=== PATIENT | female | born 1990 | race Caucasian/White ===

== ENCOUNTER 2016-06-30 15:27 | Emergency (ER) | payer SELFPAY ==
[~2016-06-30] VITALS: Ht 170.2 cm; Wt 65.0 kg
[~2016-06-30 15:27] MED LIST: ALBU0.086 INH; ALBU17I INH; FLUT1INH INH; PERC5TAB12 PO; [UNRECOGNIZED DRUG - CODE] RIGHT EYE
[2016-06-30 15:56] VITALS: BP 121/83; PULSE 91; RESP 16; TEMP 98.8; O2SAT 100
[2016-06-30] MEDS ORDERED: SODIUM CHLOR 0.9% 1000 ML INJ 1,000 ML IV SCH (16:28)
[2016-06-30] MEDS ORDERED: ONDANSETRON HCL 4 MG/2 ML VIAL IVP ONE (16:30)
[2016-06-30] MEDS ORDERED: SODIUM CHLORIDE 0.9% FLUSH 5 ML FLUSH IVF PRN (16:30)
[2016-06-30] MEDS ORDERED: MORPHINE SULFATE 4 MG/ML INJ IV ONE (16:30)
[2016-06-30] MEDS ORDERED: ALBU6.7H INH (16:31)
[2016-06-30] MEDS ORDERED: ALBU.5I NEB (16:31)
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
[2016-06-30 17:07] LABS: AUTOMATED NEUTROPHIL # 5.6 TH/MM3 (1.8-7.7); BASOPHIL % 0.3 % (0.0-2.0); EOSINOPHIL # 0.1 TH/MM3 (0-0.4); EOSINOPHIL % 0.9 % (0.0-4.0); HEMATOCRIT 37.1 % (35.0-46.0); HEMO FLAGS DIFF FINAL; LYMPH % 29.2 % (9.0-44.0); LYMPHOCYTE # 2.7 TH/MM3 (1.0-4.8); MEAN CELL VOLUME 91.7 FL (80.0-100.0); MEAN CORPUSCULAR HEMOGLOBIN 30.8 PG (27.0-34.0); MEAN CORPUSCULAR HGB CONC 33.5 % (32.0-36.0); MONO % 9.2 % (0.0-8.0); NEUT % 60.4 % (16.0-70.0); PLATELET COUNT 304 TH/MM3 (150-450); RED BLOOD COUNT 4.05 MIL/MM3 (4.00-5.30); RED CELL DISTRIBUTION WIDTH 12.9 % (11.6-17.2); WHITE BLOOD COUNT 9.3 TH/MM3 (4.0-11.0)
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
[2016-06-30 17:20] LABS: POTASSIUM 3.9 MEQ/L (3.5-5.1)
[2016-06-30 17:23] LABS: BICARBONATE 21.9 MEQ/L (21.0-32.0)
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
[2016-06-30] MEDS ORDERED: PROCHLORPERAZINE INJ 10 MG/2 ML VIAL IVS ONE (17:45)
[2016-06-30] MEDS ORDERED: diphenhydrAMINE HCL 50 MG/ML VIAL IV PUSH ONE (17:45)
[2016-06-30] MEDS ORDERED: PROM25TA5 PO (18:05)
[2016-06-30] MEDS ORDERED: ULTR50TA5 PO (18:05)
[2016-06-30 18:11] VITALS: BP 114/64; PULSE 80; RESP 17; O2SAT 100
[2016-06-30 19:14] VITALS: BP 115/64; TEMP 98.8
== END 2016-06-30 19:33 | disposition home or self-care (01) ==
LOC: PHED 15:27
DX: G44.319 Acute post-traumatic headache, not intractable (principal); S06.0X1A Concussion with loss of consciousness of 30 minutes or less, initial encounter; S60.221A Contusion of right hand, initial encounter; S89.91XA Unspecified injury of right lower leg, initial encounter; S40.811A Abrasion of right upper arm, initial encounter; R07.81 Pleurodynia; Y04.0XXA Assault by unarmed brawl or fight, initial encounter
CPT/HCPCS: 70450; 71010; 73130; 73564; 80048; 84703; 85025; 96361; 96374; 96375; 99284; J0780; J1200; J2270; J2405; J7030

== ENCOUNTER 2016-08-20 19:01 | Emergency (ER) | payer SELFPAY ==
[~2016-08-20] VITALS: Ht 170.2 cm; Wt 67.4 kg
[~2016-08-20 19:01] MED LIST changes: +ALBU.5I NEB; -ALBU0.086 INH; -ALBU17I INH; +ALBU6.7H INH; -FLUT1INH INH; -PERC5TAB12 PO; +PROM25TA5 PO; +ULTR50TA5 PO; -[UNRECOGNIZED DRUG - CODE] RIGHT EYE
[2016-08-20 19:12] VITALS: BP 120/84; PULSE 104; RESP 18; TEMP 99; O2SAT 100
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
[2016-08-20] MEDS ORDERED: IBUP800T23 PO (19:43)
[2016-08-20] MEDS ORDERED: CLIN1CAP6 PO (19:43)
[2016-08-20] MEDS ORDERED: LIDOCAINE HCL 1% 50 ML VIAL INFIL ONE (19:45)
[2016-08-20] MEDS ORDERED: IBUPROFEN 600 MG TAB PO ONE (20:15)
== END 2016-08-20 20:19 | disposition home or self-care (01) ==
LOC: PHEFT 19:01
DX: S61.412A Laceration without foreign body of left hand, initial encounter (principal); J45.909 Unspecified asthma, uncomplicated; W26.0XXA Contact with knife, initial encounter; Y99.8 Other external cause status
CPT/HCPCS: 12001

== ENCOUNTER 2016-11-30 01:01 | Emergency (ER) | payer OTHER ==
[~2016-11-30] VITALS: Ht 170.2 cm; Wt 65.0 kg
[~2016-11-30 01:01] MED LIST changes: +CLIN1CAP6 PO; +IBUP800T23 PO; -PROM25TA5 PO; -ULTR50TA5 PO
[2016-11-30 01:04] VITALS: BP 142/85; PULSE 74; RESP 16; TEMP 98.9; O2SAT 100
[2016-11-30] MEDS ORDERED: ONDANSETRON HCL 4 MG/2 ML VIAL IVP ONE (01:30)
[2016-11-30] MEDS ORDERED: methylPREDNISolone SOD SUCC 125 MG/2 ML VIAL IVP ONE (01:30)
[2016-11-30] MEDS ORDERED: SODIUM CHLORIDE 0.9% FLUSH 10 ML FLUSH IVF PRN (01:30)
[2016-11-30] MEDS ORDERED: MORPHINE SULFATE 4 MG/ML INJ IV ONE (01:30)
[2016-11-30] MEDS: RESP: ALBUTEROL 2.5 MG/IPRATROPIUM 0.5 MG NEB (SCH) INH ×2 (01:35→01:36)
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
[2016-11-30 01:58] LABS: AUTOMATED NEUTROPHIL # 3.5 TH/MM3 (1.8-7.7); BASOPHIL % 0.5 % (0.0-2.0); EOSINOPHIL # 0.2 TH/MM3 (0-0.4); EOSINOPHIL % 2.6 % (0.0-4.0); HEMATOCRIT 34.9 % (35.0-46.0); HEMO FLAGS DIFF FINAL; LYMPH % 33.8 % (9.0-44.0); LYMPHOCYTE # 2.2 TH/MM3 (1.0-4.8); MEAN CELL VOLUME 93.3 FL (80.0-100.0); MEAN CORPUSCULAR HGB CONC 33.2 % (32.0-36.0); NEUT % 53.1 % (16.0-70.0); PLATELET COUNT 225 TH/MM3 (150-450); RED BLOOD COUNT 3.74 MIL/MM3 (4.00-5.30); RED CELL DISTRIBUTION WIDTH 14.3 % (11.6-17.2); WHITE BLOOD COUNT 6.5 TH/MM3 (4.0-11.0)
[2016-11-30 02:06] LABS: APTT (PATIENT) 28.2 SEC (24.3-30.1)
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
[2016-11-30 02:11] LABS: ANION GAP 5 MEQ/L (5-15); BICARBONATE 27.2 MEQ/L (21.0-32.0); BLOOD UREA NITROGEN 9 MG/DL (7-18); CHLORIDE 107 MEQ/L (98-107); GLOMERULAR FILTRATION RATE 83 ML/MIN (>89); POTASSIUM 4.1 MEQ/L (3.5-5.1); SODIUM (NA) 139 MEQ/L (136-145)
[2016-11-30 02:27] LABS: BETA HCG QUANT LESS THAN 1 MIU/ML (0-5)
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
[2016-11-30] MEDS ORDERED: IOHEXOL 350 MG/ML 10 ML VIAL (for RAD DIAG) IV ONE (03:22)
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
[2016-11-30] MEDS ORDERED: ROBA500T PO (03:45)
[2016-11-30] MEDS ORDERED: TRAM50TA PO (03:45)
[2016-11-30 04:15] VITALS: BP 124/72; PULSE 71; RESP 18; TEMP 98.1; O2SAT 98
== END 2016-11-30 04:16 | disposition home or self-care (01) ==
LOC: NEPE 01:01
DX: M54.5 Low back pain (principal); R06.00 Dyspnea, unspecified; M54.2 Cervicalgia; R10.9 Unspecified abdominal pain; M54.6 Pain in thoracic spine; J45.909 Unspecified asthma, uncomplicated; F43.10 Post-traumatic stress disorder, unspecified; Z87.442 Personal history of urinary calculi; V49.49XA Driver injured in collision with other motor vehicles in traffic accident, initial encounter; Y93.9 Activity, unspecified; Y92.410 Unspecified street and highway as the place of occurrence of the external cause
CPT/HCPCS: 70450; 71010; 71260; 72125; 72128; 72131; 74177; 80048; 80307; 84702; 85025; 85610; 85730; 86850; 86900; 86901; 94640; 94664; 96374; 96375; 99285; J2270; J2405; J2930; Q9967

== ENCOUNTER 2016-12-24 16:58 | Emergency (ER) | payer OTHER ==
[~2016-12-24 16:58] MED LIST changes: -CLIN1CAP6 PO; -IBUP800T23 PO; +ROBA500T PO; +TRAM50TA PO
[2016-12-24 17:12] VITALS: BP 123/89; PULSE 98; RESP 20; TEMP 98.3; O2SAT 97
[2016-12-24] MEDS ORDERED: CYCL5TAB PO (18:10)
[2016-12-24] MEDS ORDERED: LORazepam 1 MG TAB PO ONE (18:15)
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
[2016-12-24] MEDS ORDERED: KETOROLAC TROMETHAMINE 60 MG/2 ML (IM) VIAL IM ONE (18:45)
== END 2016-12-24 18:58 | disposition home or self-care (01) ==
LOC: PHEFT 16:58
DX: S16.1XXA Strain of muscle, fascia and tendon at neck level, initial encounter (principal); V89.2XXA Person injured in unspecified motor-vehicle accident, traffic, initial encounter; Y92.410 Unspecified street and highway as the place of occurrence of the external cause
CPT/HCPCS: 96372; 99284; J1885